=== PATIENT | female | born 1965 | race Caucasian/White ===

== ENCOUNTER → 2020-01-26 09:46 | Outpatient (CLI) | payer BC, SELFPAY | PROVIDERS: PCP Family Medicine; Referring Provider Family Medicine; Visit Provider Family Medicine | DX: R52 Pain, unspecified (principal); D89.9 Disorder involving the immune mechanism, unspecified; R53.83 Other fatigue | CPT/HCPCS: 87635; 94799; U0003 ==

== ENCOUNTER → 2020-04-26 10:54 | Outpatient (CLI) | payer BC, SELFPAY | PROVIDERS: PCP Family Medicine; Referring Provider Nurse Practitioner Family; Visit Provider Nurse Practitioner Family | DX: B34.9 Viral infection, unspecified (principal) | CPT/HCPCS: 87635; C9803; U0003 ==